=== PATIENT | male | born 1985 | race Two or more races ===

== ENCOUNTER 2019-06-01 20:44 | Emergency (ER) | payer MEDICAID, OTHER ==
[~2019-06-01] VITALS: Ht 182.9 cm; Wt 113.4 kg
[2019-06-01 21:50] VITALS: BP 105/82
== END 2019-06-02 00:15 | disposition home or self-care (01) ==
LOC: ER 20:49
DX: R56.9 Unspecified convulsions (principal); Z76.0 Encounter for issue of repeat prescription